=== PATIENT | female | born 1945 | race Hispanic/Latino ===

== ENCOUNTER 2020-04-09 13:46 | Outpatient (CLI) | payer MEDICARE ==
--- NOTE | 2020-04-09 15:56 | RAD ---
XR Knee Rt 4 View STANDARD HISTORY: Right knee pain FINDINGS: No fracture or dislocation is identified. Mild degenerative changes are present.
== END 2020-04-09 13:47 | disposition home or self-care (01) ==
LOC: NAV RAD 13:46
PROVIDERS: ATTEND Nurse Practitioner Adult Health
DX: M25.561 Pain in right knee (principal)